=== PATIENT | female | born 1980 | race Caucasian/White ===

== ENCOUNTER 2017-03-17 16:42 | Observation (INO) | payer OTHER ==
[~2017-03-17] VITALS: Ht 149.9 cm; Wt 67.1 kg
== END 2017-03-17 21:50 | disposition home or self-care (01) ==
LOC: MLD 16:42
PROVIDERS: ADMIT Obstetrics & Gynecology; ATTEND Obstetrics & Gynecology
DX: O42.92 Full-term premature rupture of membranes, unspecified as to length of time between rupture and onset of labor (principal); Z3A.38 38 weeks gestation of pregnancy
CPT/HCPCS: G0378

== ENCOUNTER 2017-03-23 19:53 | Inpatient (IN) | payer OTHER ==
[~2017-03-23] VITALS: Ht 149.9 cm; Wt 66.2 kg
[2017-03-23] MEDS ORDERED: NALBUPHINE HYDROCHLORIDE 10 MG/ML VIAL IVP PRN (20:40)
[2017-03-23] MEDS ORDERED: OXYTOCIN 10 UNITS/ML VIAL IM SCH (20:40)
[2017-03-23] MEDS ORDERED: PROMETHAZINE 25 MG/ML VIAL IVP PRN (20:40)
[2017-03-23] MEDS ORDERED: OXYTOCIN 20 UNITS in LACTATED RINGERS 1,000 ML IV SCH (20:40)
[2017-03-23] MEDS ORDERED: CARBOPROST 250 MCG/ML AMP IM PRN (20:40)
[2017-03-23] MEDS ORDERED: METHYLERGONOVINE 0.2 MG/ML AMP IM PRN ×2 (20:40→23:40)
[2017-03-23] MEDS ORDERED: AMPICILLIN 2,000 MG in NACL 0.9% MINI-BAG PLUS 100 ML IV SCH (20:40)
[2017-03-23] MEDS ORDERED: LACTATED RINGERS 500 ML IV SCH (20:40)
[2017-03-23] MEDS ORDERED: ROPIVACAINE 0.2%/NS PREMIX 250 ML EPI ONE (20:59)
[2017-03-23] MEDS: LACTATED RINGERS 1,000 ML IV SCH ×2 (21:05→22:38)
[2017-03-23] MEDS ORDERED: AMPICILLIN 2,000 MG VIAL ONE (21:29)
[2017-03-23 21:35] LABS: APPEARANCE,URINE HAZY (CLEAR); BILIRUBIN,URINE NEGATIVE (NEGATIVE); BLOOD, URINE TRACE-I (NEGATIVE); COLOR,URINE YELLOW (YELLOW); LEUKOCYTE ESTERASE ,URINE 2+ (NEGATIVE); NITRITE, URINE NEGATIVE (NEGATIVE); PH,URINE 6.5 (5.0-9.0); UGLUCOSE NEGATIVE (NEGATIVE)
[2017-03-23 21:44] LABS: RBC,URINE 0-5 (RARE) /HPF (0-5); WBC,URINE 16-25 (MOD) /HPF (0-5)
[2017-03-23 21:44] LABS: BASOPHILS # (AUTO) 0.1 K/uL (0.00-0.22); BASOPHILS % (AUTO) 1.3 % (0.0-2.0); EOSINOPHILS # (AUTO) 0.1 K/uL (0-0.4); EOSINOPHILS % (AUTO) 0.7 % (0.0-4.0); HEMATOCRIT 34.1 % (36-48); HEMOGLOBIN 11.1 g/dL (12.0-16.0); LYMPHOCYTES # (AUTO) 2.5 K/uL (2.5-16.5); LYMPHOCYTES % (AUTO) 26.2 % (20.5-51.1); MEAN CORPUSCULAR HEMOGLOBIN 29 pg (27-31); MEAN CORPUSCULAR HGB CONC 33 g/dL (33-37); MEAN CORPUSCULAR VOLUME 89 fL (80-94); MONOCYTES # (AUTO) 0.6 K/uL (0.8-1.0); MONOCYTES % (AUTO) 6.3 % (1.7-9.3); NEUTROPHILS # (AUTO) 6.2 K/uL (1.8-7.7); NEUTROPHILS % (AUTO) 65.5 % (42.2-75.2); PLATELET COUNT (AUTO) 232 K/uL (140-450); RED BLOOD CELL COUNT(AUTO) 3.83 MIL/uL (4.20-5.40); RED CELL DISTRIBUTION WIDTH 14.9 % (11.6-13.7); WHITE BLOOD COUNT (AUTO) 9.5 K/uL (4.8-10.8)
[2017-03-23 21:45] LABS: ALBUMIN 2.3 g/dL (3.4-5.0); ANION GAP 12.8 (8-16); CARBON DIOXIDE 24.8 mmol/L (21-32); CREATININE 0.7 mg/dL (0.6-1.3); POTASSIUM 3.6 mmol/L (3.5-5.1); TOTAL BILIRUBIN 0.2 mg/dL (0.0-1.0)
[2017-03-23] MEDS ORDERED: AMPICILLIN 1,000 MG in NACL 0.9% MINI-BAG PLUS 50 ML IV SCH (22:00)
[2017-03-23 22:06] LABS: RAPID PLASMA REAGIN NON-REACTIVE (Non Reactiv)
[2017-03-23] MEDS ORDERED: OXYTOCIN 20 UNITS/LR PREMIX 1,000 ML IV ONE (23:22)
[2017-03-23] MEDS ORDERED: BENZOCAINE/MENTHOL 20%-0.5% 60 GM CAN TP PRN (23:40)
[2017-03-23] MEDS ORDERED: HYDROcodone/APAP 5/325 MG 1 TAB TAB PO PRN (23:40)
[2017-03-23] MEDS ORDERED: OXYTOCIN 10 UNITS/ML VIAL IM PRN (23:40)
[2017-03-23] MEDS ORDERED: MEASLES, MUMPS, AND RUBELLA 1 VIAL SQVAC PRN (23:40)
[2017-03-23] MEDS ORDERED: TEMAZEPAM 15 MG CAP PO PRN (23:40)
[2017-03-24 01:07] VITALS: BP 109/62
[2017-03-24] MEDS: LACTATED RINGERS 1,000 ML IV SCH (03:00)
[2017-03-24] MEDS ORDERED: OXYTOCIN 10 UNITS/ML VIAL ONE (04:20)
--- NOTE | 2017-03-24 10:16 | NUR ---
PATIENT HAS BEEN SCREENED AND CATEGORIZED LOW NUTRITION RISK. PATIENT WILL BE SEEN WITHIN 7 DAYS OF ADMISSION. 03/30/[address]
[2017-03-24] MEDS: IBUPROFEN 800 MG TAB PO PRN ×2 (11:33→19:03)
[2017-03-24] MEDS: oxyCODONE/APAP 5/325 MG 1 TAB TAB PO PRN ×2 (15:36→20:23)
[2017-03-24] MEDS ORDERED: DOCUSATE SOD/SENNA 50/8.6 MG 1 TAB PO SCH (21:00)
[2017-03-25] MEDS: IBUPROFEN 800 MG TAB PO PRN ×3 (03:08→15:31)
[2017-03-25 08:20] LABS: HEMATOCRIT 33.7 % (36-48); HEMOGLOBIN 10.7 g/dL (12.0-16.0)
[2017-03-25] MEDS ORDERED: IBUP-1842 PO (09:20)
== END 2017-03-25 17:05 | disposition home or self-care (01) | DRG 560 ==
LOC: MLD 19:53 → MFCC 03-24 08:53
PROVIDERS: ADMIT Obstetrics & Gynecology; ATTEND Obstetrics & Gynecology
PROC: 00HU33Z Insertion of Infusion Device into Spinal Canal, Percutaneous Approach (ICD-10-PCS; 2017-03-23)
PROC: 3E0R3BZ Introduction of Anesthetic Agent into Spinal Canal, Percutaneous Approach (ICD-10-PCS; 2017-03-23)
PROC: 10E0XZZ Delivery of Products of Conception, External Approach (ICD-10-PCS; principal; 2017-03-24)
PROC: 10907ZC Drainage of Amniotic Fluid, Therapeutic from Products of Conception, Via Natural or Artificial Opening (ICD-10-PCS; 2017-03-24)
DX: O80 Encounter for full-term uncomplicated delivery (principal); Z86.19 Personal history of other infectious and parasitic diseases; Z37.0 Single live birth; Z3A.39 39 weeks gestation of pregnancy; Z80.3 Family history of malignant neoplasm of breast; Z82.49 Family history of ischemic heart disease and other diseases of the circulatory system; Z28.21 Immunization not carried out because of patient refusal
CPT/HCPCS: 36415; 51702; 59409; 80053; 81001; 85018; 85025; 86592; 86762; 86886; 86900; 86901; 87086; 87340; 87653-90; J0290; J2590; J2795; J7120